=== PATIENT | male | born 1950 | race Caucasian/White ===

== ENCOUNTER 2023-04-20 17:46 | Inpatient (IN) | payer MEDICARE, SELFPAY ==
[2023-04-20] VITALS (27 sets, daily range): BP systolic 130–240; BP diastolic 74–136; PULSE 69–110; RESP 12–32; TEMP 36.3–36.9; O2SAT 83–100; BMI 33.7; BMI 34.4
--- NOTE | 2023-04-20 17:46 | ECG_ITS ---
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
--- NOTE | 2023-04-20 17:48 | ED_ITS ---
HPI - SOB/Dyspnea General Chief Complaint: Shortness of Breath/Dyspnea Stated Complaint: SHORTNESS OF BREATH Time Seen by Provider: 04/20/23 18:02 Source: patient and EMR Mode of arrival: ambulance History of Present Illness HPI Narrative: patient is a 72-year-old male with a history of stage IV gastric carcinoma who presents the emergency department by ambulance for respiratory distress. Patient's cancer center nurse contacted the emergency department for brief report prior to his arrival, she reported that the patient was recently admitted to [facility] from 04/14 to 04/18 for abdominal pain and after endoscopy was found to have gastrointestinal bleed secondary to gastric tumor and ulcer. He was taken off of his Xarelto and was discharged two days ago. He contacted the cancer center today in [place] stating that he was having difficulty breathing. Patient is groaning on arrival to the emergency Department and only answers some questions. He appears pale, EMS reports that he denied chest pain but he reports to me that he has had some chest pain. He has some swelling to the lower extremities, no fevers or vomiting. Palliative medicine consult at [facility] place the patient on fentanyl patch and oral Dilaudid for pain control. Patient is a DNR CCA by his living will, though he does not have any DNR CCA paperwork with him on arrival to the emergency department. Related Data Home Medications Medication Instructions Recorded Confirmed aluminum-mag hydroxide-simethicone 5 ml PO Q3H PRN indigestion 04/20/23 04/20/23 200 mg-200 mg-20 mg/5 mL oral susp (Antacid) atorvastatin 20 mg tablet 20 mg PO DAILY 04/20/23 04/20/23 diphenhydramine HCl 12.5 mg/5 mL 12.5 mg PO Q8H PRN allergy symptoms 04/20/23 04/20/23 oral liquid (Allergy (diphenhydramine)) fentanyl 12 mcg/hr transdermal 1 patch topical Q72H 04/20/23 04/20/23 patch fentanyl 25 mcg/hr transdermal 1 patch transdermal Q72H Pain 04/20/23 04/20/23 patch fluocinonide 0.05 % topical cream 1 applic topical DAILY 04/20/23 04/20/23 fluocinonide 0.05 % topical 1 applic topical DAILY 04/20/23 04/20/23 solution hydrocortisone 10 mg tablet 40 mg PO BID 04/20/23 04/20/23 hydrocortisone 2.5 % topical cream 1 applic [place] DAILY PRN itching 04/20/23 04/20/23 with perineal applicator (Anusol-HC) hydromorphone 2 mg tablet 4 mg PO Q4H PRN pain 04/20/23 04/20/23 ketoconazole 2 % shampoo 1 applic topical Q14D 04/20/23 04/20/23 lorazepam 0.5 mg tablet 0.5 mg PO TID PRN anxiety 04/20/23 04/20/23 losartan 100 mg tablet 100 mg PO DAILY 04/20/23 04/20/23 naloxone 4 mg/actuation nasal spray 4 mg intranasal DAILY PRN opioid 04/20/23 04/20/23 overdose omeprazole 20 mg capsule,delayed 20 mg PO DAILY 04/20/23 04/20/23 release ondansetron 4 mg disintegrating 8 mg PO Q8H 04/20/23 04/20/23 tablet polyethylene glycol 3350 17 17 g PO DAILY 04/20/23 04/20/23 gram/dose oral powder (ClearLax) rosuvastatin 40 mg tablet 40 mg PO DAILY 04/20/23 04/20/23 sennosides 8.6 mg tablet (Corrie-dario) 8.6 mg PO DAILY 04/20/23 04/20/23 sucralfate 1 gram tablet 1 g PO .AC and HS 04/20/23 04/20/23 terazosin 10 mg capsule 10 mg PO DAILY 04/20/23 04/20/23 triamcinolone acetonide 0.1 % 1 applic topical DAILY 04/20/23 04/20/23 topical cream venlafaxine 150 mg 150 mg PO DAILY 04/20/23 04/20/23 capsule,extended release 24 hr Allergies Allergy/AdvReac Type Severity Reaction Status Date / Time acetaminophen [From Percocet] Allergy Intermediate Verified 04/20/23 17:51 morphine Allergy Intermediate Verified 04/20/23 17:49 oxycodone [From Percocet] Allergy Intermediate Verified 04/20/23 17:51 prochlorperazine Allergy Intermediate Verified 04/20/23 17:51 [From Compazine] Review of Systems ROS Constitutional Denies: fever or chills Ears, nose, mouth, and throat Denies: neck pain Cardiovascular Reports: chest pain Respiratory Reports: shortness of breath and cough Gastrointestinal Reports: abdominal pain; Denies: nausea or vomiting Musculoskeletal Denies: back pain or neck pain Integumentary/Breast Denies: rash Neurological Denies: headache PFSH PFS Medical History (Updated 04/20/23 @ 21:44 by Calista Hernandez) Social History (Updated 04/20/23 @ 21:46 by Calista Hernandez) Within the past year, how often did you have a drink containing alcohol: never Score interpretation: A score less than 4 is consistent with normal alcohol consumption. 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 Known occupational exposures/hazards: No Highest level of school completed/degree received: Bachelor's degree Are you now , , , , never or living with a partner: never In a typical week, how many times do you talk on the telephone with family, friends, or neighbors: 3 or more times per week How often do you get together with friends or relatives: 3 or more times per week How often do you attend voodoo or anglican services: 1-3 times per year Little interest or pleasure in doing things: nearly every day Feeling down, depressed, or hopeless: nearly every day Exam Narrative Exam Narrative: Gen.: Awake, alert, anxious with moderate respiratory distress. Head: Normocephalic, atraumatic ENT: Moist mucous membranes Respiratory: No respiratory distress, Rales and wheezing bilaterally Cardio: Regular rate and rhythm Gastrointestinal: Abdomen is soft, obese, nontender to palpation with umbilical hernia noted Extremities: Moves extremities equally Psych: anxious Neuro: No focal neuro deficit Skin: Warm, dry, pale Constitutional Vital Signs - 24 hr 04/20/23 17:44 04/20/23 18:00 04/20/23 18:05 Temperature 98.4 F Pulse Rate 96 H Pulse Rate [Monitor] 99 H Respiratory Rate 30 H Blood Pressure Blood Pressure [Right Arm] 180/83 H Pulse Oximetry 93 L 99 99 Oxygen Delivery Method Nonrebreather BIPAP Fraction of Inspired Oxygen 50 04/20/23 17:46 04/20/23 17:46 04/20/23 18:00 Temperature Pulse Rate 91 H 96 H 99 H Pulse Rate [Monitor] Respiratory Rate 31 H 26 H 15 Blood Pressure 180/83 H 151/75 H Blood Pressure [Right Arm] Pulse Oximetry 98 92 L 98 Oxygen Delivery Method Fraction of Inspired Oxygen 04/20/23 18:00 04/20/23 18:15 04/20/23 18:30 Temperature Pulse Rate 97 H 96 H Pulse Rate [Monitor] Respiratory Rate 24 27 H Blood Pressure 151/75 H 147/96 H 130/74 H Blood Pressure [Right Arm] Pulse Oximetry 95 96 Oxygen Delivery Method Fraction of Inspired Oxygen 04/20/23 19:05 04/20/23 19:07 04/20/23 19:07 Temperature Pulse Rate 110 H 103 H 108 H Pulse Rate [Monitor] Respiratory Rate 25 H 26 H 32 H Blood Pressure 240/134 H Blood Pressure [Right Arm] Pulse Oximetry 100 100 100 Oxygen Delivery Method Fraction of Inspired Oxygen 04/20/23 19:10 04/20/23 19:15 04/20/23 19:30 Temperature Pulse Rate 104 H 99 H 99 H Pulse Rate [Monitor] Respiratory Rate 21 22 20 Blood Pressure 168/94 H 167/100 H 179/92 H Blood Pressure [Right Arm] Pulse Oximetry 99 98 83 L Oxygen Delivery Method Fraction of Inspired Oxygen 04/20/23 19:45 Temperature Pulse Rate 97 H Pulse Rate [Monitor] Respiratory Rate 24 Blood Pressure 141/92 H Blood Pressure [Right Arm] Pulse Oximetry 99 Oxygen Delivery Method Fraction of Inspired Oxygen Course Vital Signs Vital signs: Vital Signs Temperature 98.4 F 04/20/23 17:44 Pulse Rate 99 H 04/20/23 17:44 Respiratory Rate 30 H 04/20/23 17:44 Blood Pressure 180/83 H 04/20/23 17:44 Pulse Oximetry 93 L 04/20/23 17:44 Oxygen Delivery Method Nonrebreather 04/20/23 17:44 Temperature 97.4 F L 04/20/23 22:07 Pulse Rate 90 04/20/23 22:15 Respiratory Rate 22 04/20/23 22:07 Blood Pressure 151/82 H 04/20/23 22:07 Pulse Oximetry 95 04/20/23 22:15 Oxygen Delivery Method BIPAP 04/20/23 22:07 Fraction of Inspired Oxygen 04/20/23 22:01 MDM - SOB/Dyspnea MDM Narrative Medical decision making narrative: on arrival to the emergency department, patient was in moderate respiratory distress and treated with BiPAP. He tolerated this well and had significant improvement of his respiratory status. He was given additional pain medication and nausea medication. Solu-Medrol was given by EMS prior to arrival and he received breathing treatments on arrival that was started by EMS. Lab studies show normal troponin, normal BNP. CT angiogram of the chest shows no evidence of PE but there is bilateral patchy pneumonia. Patient will be treated for hospital-acquired pneumonia with Zosyn and vancomycin. We will admit to ICU at this facility for further evaluation and treatment. patient admitted to ICU on BiPAP, critical care time thirty-five minutes Patient reevaluated by attending physician prior to admission Medical Records Attestation: I reviewed the patient's medical records. Lab Data Attestation: I reviewed the patient's lab results. Labs: Lab Results 04/20/23 04/20/23 Range/Units 17:46 18:05 WBC 13.4 H (4.0-11.0) 10^3/uL RBC 3.04 L (4.70-6.10) 10^6/uL Hgb 8.3 L (14.0-18.0) g/dL Hct 26.7 L (42.0-54.0) % MCV 87.8 (80.0-94.0) fL MCH 27.3 (25.9-34.0) pg MCHC 31.1 (29.9-35.2) g/dL RDW 14.7 (11.0-15.0) % Plt Count 442 (150-450) 10^3/uL MPV 9.3 L (9.5-13.5) fL Neut % (Auto) 93.6 H (43.0-75.0) % Lymph % (Auto) 2.8 L (20.5-60.0) % Stephens % (Auto) 3.1 (1.7-12.0) % Eos % (Auto) 0.1 L (0.9-7.0) % Baso % (Auto) 0.1 L (0.2-2.0) % Neut # (Auto) 12.6 H (1.4-6.5) 10^3/uL Lymph # (Auto) 0.4 L (1.2-3.8) 10^3/uL Stephens # (Auto) 0.4 (0.3-0.8) 10^3/uL Eos # (Auto) 0.0 (0.0-0.7) 10^3/uL Baso # (Auto) 0.0 (0.0-0.1) 10^3/uL Abs Immat Gran (auto) 0.04 H (0.00-0.03) 10^3/uL Imm/Tot Granulo (auto) 0.3 (0.0-0.5) % PT 11.6 (9.0-11.6) sec INR 1.10 APTT 28.3 (22.3-36.2) sec Sodium 140 (136-145) mmol/L Potassium 4.0 (3.5-5.1) mmol/L Chloride 105 (98-107) mmol/L Carbon Dioxide 29.9 (21.0-32.0) mmol/L Anion Gap 9.1 BUN 19.0 H (7.0-18.0) mg/dL Creatinine 0.98 (0.70-1.30) mg/dL Est GFR ( Amer) >60 (>=60) Est GFR (Non-Af Amer) >60 (>=60) BUN/Creatinine Ratio 19.4 Glucose 142 H (74-106) mg/dL Calcium 7.9 L (8.5-10.1) mg/dL Total Bilirubin 0.2 (0.2-1.0) mg/dL AST 32 (15-37) U/L ALT 28 (16-63) U/L Alkaline Phosphatase 67 (46-116) U/L Troponin I High Sens 9.2 (4.0-76.1) pg/mL NT-Pro-B Natriuret Pep 192.0 (<=900.0) pg/mL Total Protein 5.7 L (6.4-8.2) g/dL Albumin 2.3 L (3.4-5.0) g/dL Globulin 3.4 g/dL Albumin/Globulin Ratio 0.7 SARS-CoV-2 (PCR) Negative (NEGATIVE) Imaging Data CT scan - chest: Attestation: I have reviewed the pertinent imaging results. Radiologist's impression: Procedure: CT angio chest EXAM: CT angio chest TECHNIQUE: Axial CT images were obtained of the chest following intravenous contrast administration. Sagittal and coronal reformatted images were also obtained. Dose reduction techniques were achieved by using automated exposure control and/or adjustment of mA and/or kV according to patient size and/or use of iterative reconstruction technique. 3-D volume rendering created. HISTORY: respiratory distress COMPARISON: None FINDINGS: Neck and Axilla: No lower neck or axillary lymphadenopathy. Mediastinum and Arielle: No hilar or mediastinal lymphadenopathy. Esophagus is unremarkable. Heart and Major Vessels: The heart appears unremarkable for size without pericardial effusion. The aorta and central pulmonary arteries are unremarkable for size.No pulmonary arterial filling defect to suggest acute pulmonary embolism. Lung Waller: Diffuse bilateral central airspace opacities a few benign calcified granulomas are seen. Evaluation of lung waller is somewhat limited by breathing motion artifact. Mild left base dependent and compressive atelectasis. Pleural Spaces: Small left subpleural effusion. Upper Abdomen: Small amount of ascites in the upper abdomen. Nodular opacities throughout the anterior omentum. Upper abdominal metastatic lymphadenopathy.. Chest Wall: No acute abnormality. IMPRESSION: No evidence for acute pulmonary embolism. Bilateral patchy airspace opacities, most compatible with an infectious pneumonia. Nodular appearance of the upper abdominal omentum suspicious for metastatic disease. Upper abdominal metastatic adenopathy. Electronically authenticated by: JOVANI MORALES Date: 04/20/2023 19:49 ECG Data Attestation: I personally reviewed and interpreted this ECG as follows: (sinus tachycardia at a rate of 100, sinus arrhythmia noted with no acute ST elevation or ectopy. EKG reviewed by attending physician) ECG interpretation date: 04/20/23 ECG interpretation time: 17:53 Critical Care Time Critical Care Time Critical Care Time: Yes Total Critical Care Time: 35 Attestation: critical care time thirty-five minutes Discharge Plan Discharge Chief Complaint: Shortness of Breath/Dyspnea Clinical Impression: Anemia, Acute respiratory distress, Bilateral pneumonia Patient Disposition: Admitted As Inpatient Time of Disposition Decision: 20:29 Condition: Fair
--- NOTE | 2023-04-20 18:06 | PC.NURSE ---
Pt 62% at home when EMS arrived. Has been feeling SOB since noon and getting worse. H/o stage 4 stomach cancer and has been getting chemo infusions at [facility]. Pt given nebulizers in squad and placed on NRB. Pt also received versed by EMS for agitation/restlessness. RT at bedside upon arrival. placed on BIPAP.
[2023-04-20 18:26] LABS: Basophils Percent Auto 0.1 % (0.2-2.0); Eosinophils Percent Auto 0.1 % (0.9-7.0); Hematocrit 26.7 % (42.0-54.0); Hemoglobin 8.3 g/dL (14.0-18.0); Immature Granulocytes Abs Auto 0.04 10^3/uL (0.00-0.03); Immature Granulocytes Pct Auto 0.3 % (0.0-0.5); Lymphocytes Absolute Auto 0.4 10^3/uL (1.2-3.8); Lymphocytes Percent Auto 2.8 % (20.5-60.0); Mean Corpuscular HGB Conc 31.1 g/dL (29.9-35.2); Mean Corpuscular Hemoglobin 27.3 pg (25.9-34.0); Mean Corpuscular Volume 87.8 fL (80.0-94.0); Mean Platelet Volume 9.3 fL (9.5-13.5); Monocytes Absolute Auto 0.4 10^3/uL (0.3-0.8); Monocytes Percent Auto 3.1 % (1.7-12.0); Neutrophils Absolute Auto 12.6 10^3/uL (1.4-6.5); Neutrophils Percent Auto 93.6 % (43.0-75.0); Platelet Count 442 10^3/uL (150-450); Red Blood Count 3.04 10^6/uL (4.70-6.10); Red Cell Distribution Width 14.7 % (11.0-15.0); White Blood Count 13.4 10^3/uL (4.0-11.0)
[2023-04-20 18:38] LABS: Partial Thromboplastin Time 28.3 sec (22.3-36.2); Prothrombin Time 11.6 sec (9.0-11.6)
[2023-04-20 18:43] LABS: Alanine Aminotransferase 28 U/L (16-63); Albumin Globulin Ratio 0.7; Albumin Level 2.3 g/dL (3.4-5.0); Alkaline Phosphatase 67 U/L (46-116); Anion Gap 9.1; Aspartate Amino Transferase 32 U/L (15-37); BUN Creatinine Ratio 19.4; Bilirubin Total 0.2 mg/dL (0.2-1.0); Calcium 7.9 mg/dL (8.5-10.1); Carbon Dioxide 29.9 mmol/L (21.0-32.0); Chloride 105 mmol/L (98-107); Estimated GFR (African America >60 (>=60); Estimated GFR (Non-African Ame >60 (>=60); Globulin 3.4 g/dL; Glucose 142 mg/dL (74-106); Sodium 140 mmol/L (136-145); Total Protein 5.7 g/dL (6.4-8.2); Troponin I High Sensitivity 9.2 pg/mL (4.0-76.1)
[2023-04-20 18:56] LABS: SARS-CoV-2 Ag NEGATIVE (NEGATIVE)
[2023-04-20] MEDS: ONDANSETRON PF 4 MG/2 ML VIAL IV (19:23)
[2023-04-20] MEDS: HYDROMORPHONE HCL 2 MG/ML VIAL 1 MG IV (19:24)
[2023-04-20] MEDS: VANCOMYCIN HCL 1,000 MG in 0.9 % SODIUM CHLORIDE 250 ML 250 MG IV (20:54)
[2023-04-20] MEDS: PIPERACILLIN SODIUM/TAZOBACTAM 4.5 GM in 0.9 % SODIUM CHLORIDE 50 ML IV (20:54)
--- NOTE | 2023-04-20 23:27 | W.PM.TELEPN ---
Progress Note: Subjective Subjective Interval history: SOB HPI: patient is a 72-year-old male who presents to the complaints. The patient is a history of stage IV gastric carcinoma who presents the emergency department by ambulance for respiratory distress. Patient's cancer center nurse contacted the emergency department for brief report prior to his arrival, she reported that the patient was recently admitted to [facility] from 04/14 to 04/18 for abdominal pain and after endoscopy was found to have gastrointestinal bleed secondary to gastric tumor and ulcer. He was taken off of his Xarelto and was discharged two days ago. He contacted the cancer center today in [place] stating that he was having difficulty breathing. Patient is groaning on arrival to the emergency Department and only answers some questions. He appears pale, EMS reports that he denied chest pain but he reports to me that he has had some chest pain. He has some swelling to the lower extremities, no fevers or vomiting. Palliative medicine consult at [facility] place the patient on fentanyl patch and oral Dilaudid for pain control. Patient is a DNR CCA by his living will, though he does not have any DNR CCA paperwork with him on arrival to the emergency department. Evaluation in the emergency room significant for. Patient has been in respiratory distress on presentation with tach. Initiated. Exam Narrative Exam Narrative: Physical Exam: Respiratory distress, Head - atraumatic, eyes - pupils equal, round, reactive to light, extra ocular movement intact, MMM Neck - supple, thyroid not enlarged, LN not palpated Lungs -coarse breath sounds bilaterally, decreased at bases, bibasilar rhonchi CVS - heart sounds S1, S2, no additional murmurs gallop, regular rate and rhythm Gastrointestinal?abdomen is soft, non-tender, non-distended, no organomegaly, positive bowel sounds Extremities no clubbing, cyanosis or edema Neurological?cranial nerve II?XII grossly intact, no meningeal signs, no cerebellar signs, no sensory deficit Musculoskeletal - joints, no effusions, ROM preserved Dermatological - the skin dry, warm, no rashes Psychiatric?patient is AAO X3, patient has normal affect Constitutional Vital Signs - 24 hr 04/20/23 17:44 04/20/23 18:00 04/20/23 18:05 Temperature 98.4 F Pulse Rate 96 H Pulse Rate [Monitor] 99 H Respiratory Rate 30 H Blood Pressure Blood Pressure [Right Arm] 180/83 H Pulse Oximetry 93 L 99 99 Oxygen Delivery Method Nonrebreather BIPAP Fraction of Inspired Oxygen 50 04/20/23 17:46 04/20/23 17:46 04/20/23 18:00 Temperature Pulse Rate 91 H 96 H 99 H Pulse Rate [Monitor] Respiratory Rate 31 H 26 H 15 Blood Pressure 180/83 H 151/75 H Blood Pressure [Right Arm] Pulse Oximetry 98 92 L 98 Oxygen Delivery Method Fraction of Inspired Oxygen 04/20/23 18:00 04/20/23 18:15 04/20/23 18:30 Temperature Pulse Rate 97 H 96 H Pulse Rate [Monitor] Respiratory Rate 24 27 H Blood Pressure 151/75 H 147/96 H 130/74 H Blood Pressure [Right Arm] Pulse Oximetry 95 96 Oxygen Delivery Method Fraction of Inspired Oxygen 04/20/23 19:05 04/20/23 19:07 04/20/23 19:07 Temperature Pulse Rate 110 H 103 H 108 H Pulse Rate [Monitor] Respiratory Rate 25 H 26 H 32 H Blood Pressure 240/134 H Blood Pressure [Right Arm] Pulse Oximetry 100 100 100 Oxygen Delivery Method Fraction of Inspired Oxygen 04/20/23 19:10 04/20/23 19:15 04/20/23 19:30 Temperature Pulse Rate 104 H 99 H 99 H Pulse Rate [Monitor] Respiratory Rate 21 22 20 Blood Pressure 168/94 H 167/100 H 179/92 H Blood Pressure [Right Arm] Pulse Oximetry 99 98 83 L Oxygen Delivery Method Fraction of Inspired Oxygen 04/20/23 19:45 04/20/23 21:27 04/20/23 21:34 Temperature 97.4 F L Pulse Rate 97 H 89 Pulse Rate [Monitor] Respiratory Rate 24 16 Blood Pressure 141/92 H Blood Pressure [Right Arm] 151/82 H Pulse Oximetry 99 100 95 Oxygen Delivery Method Nonrebreather BIPAP Fraction of Inspired Oxygen 04/20/23 22:01 04/20/23 22:07 04/20/23 22:15 Temperature 97.4 F L Pulse Rate 86 90 Pulse Rate [Monitor] Respiratory Rate 22 Blood Pressure Blood Pressure [Right Arm] 151/82 H Pulse Oximetry 95 96 95 Oxygen Delivery Method BIPAP BIPAP Fraction of Inspired Oxygen 04/20/23 21:22 04/20/23 21:22 04/20/23 21:22 Temperature Pulse Rate Pulse Rate [Monitor] Respiratory Rate Blood Pressure Blood Pressure [Right Arm] Pulse Oximetry 97 99 99 Oxygen Delivery Method BIPAP BIPAP Fraction of Inspired Oxygen 40 40 40 Progress Note: Objective Labs Labs: Short CBC 04/20/23 Range/Units 17:46 WBC 13.4 H (4.0-11.0) 10^3/uL Hgb 8.3 L (14.0-18.0) g/dL Hct 26.7 L (42.0-54.0) % Plt Count 442 (150-450) 10^3/uL BMP 04/20/23 17:46 Sodium 140 Potassium 4.0 Chloride 105 Carbon Dioxide 29.9 BUN 19.0 H Creatinine 0.98 Glucose 142 H Calcium 7.9 L Liver Function 04/20/23 Range/Units 17:46 Total Bilirubin 0.2 (0.2-1.0) mg/dL AST 32 (15-37) U/L ALT 28 (16-63) U/L Alkaline Phosphatase 67 (46-116) U/L Albumin 2.3 L (3.4-5.0) g/dL Progress Note: A&P Assessment and Plan (1) Acute respiratory distress: Assessment and Plan: This is deemed to patient. Continue treatment with BiPAP. Continue oxygen supplementation. Continue empiric cardiovascular antibiotics. Follow-up results of the cultures. (2) Bilateral pneumonia: Assessment and Plan: As above (3) Anemia: Assessment and Plan: Patient has a history of stomach ulcer and stomach cancer. Monitor CBC. Transfuse as needed. (4) Stomach ulcer: Assessment and Plan: Continue with PPIs (5) Pain: Assessment and Plan: Patient is almost pain management regimen from home. We will continue it (6) Hypertension: Assessment and Plan: Verify and resume home medications (7) High cholesterol: Assessment and Plan: Verify and resume home medications (8) Gastric cancer: (9) Anxiety: Assessment and Plan: the patient and the family hoping that when his respiratory status improves he will be able to visit with is Oncologist to discuss further Rx options (10) Anemia: Assessment and Plan: as above Telemedicine Attestation Telemedicine Attestation I conducted this encounter from [[place]] via secure live, [id number] video conference with the patient, located at [facility] with [PNA]. Prior to the interview, the risks and benefits of telemedicine were discussed with the patient and verbal consent was obtained. As the provider for the telehealth service, I attest that I introduced myself to the patient, provided my credentials, disclosed by location and determined that based on a review of the patient's chart and discussion with members of the patient's treatment team, telemedicine via real-time, 2 way, and interactive audio and video platform is an appropriate and effective means of providing the service. ?The patient and I mutually agree this visit is appropriate for telemedicine. ?The virtual encounter was taken place from? [place], [place]. ?The encounter took approximately 35 minutes. ?The nurse was present during the entire time and I was able to move the stethoscope in appropriate directions. ?The patient was evaluated at the Hospital ? Portions of this note may be dictated using myWebRoom voice recognition software. Variances in spelling and vocabulary are possible and unintentional. Not all errors may be caught and/or corrected. Please notify the author if any discrepancies are noted and/or if the meaning of any statement is unclear.? ? Patient verbally consented for treatment via video visit with patient currently located at [facility] and provider located in [facility]
[2023-04-21] VITALS (27 sets, daily range): BP systolic 129–151; BP diastolic 53–82; PULSE 57–96; RESP 16–29; TEMP 36.3–37; O2SAT 95–100; BMI 34.4
[2023-04-21] MEDS: 0.9 % SODIUM CHLORIDE 1,000 ML 100 ML IV ×3 (03:36→21:10)
[2023-04-21] MEDS: TERAZOSIN HCL 5 MG CAPSULE 10 MG PO (03:36)
[2023-04-21] MEDS: VENLAFAXINE HCL ER 150 MG CAPSULE PO ×2 (03:38→21:17)
[2023-04-21] MEDS: PIPERACILLIN SODIUM/TAZOBACTAM 3.375 GM in 0.9 % SODIUM CHLORIDE 50 ML IV ×3 (04:14→21:11)
[2023-04-21 05:08] LABS: Hemoglobin 8.2 g/dL (14.0-18.0); Mean Corpuscular HGB Conc 30.4 g/dL (29.9-35.2); Mean Corpuscular Hemoglobin 27.3 pg (25.9-34.0); Mean Platelet Volume 9.7 fL (9.5-13.5); Platelet Count 373 10^3/uL (150-450); Red Cell Distribution Width 14.8 % (11.0-15.0); White Blood Count 21.6 10^3/uL (4.0-11.0)
[2023-04-21 05:28] LABS: Anion Gap 11.3; Calcium 8.4 mg/dL (8.5-10.1); Carbon Dioxide 28.2 mmol/L (21.0-32.0); Chloride 103 mmol/L (98-107); Estimated GFR (African America >60 (>=60); Estimated GFR (Non-African Ame 57 (>=60); Glucose 140 mg/dL (74-106); Potassium 4.5 mmol/L (3.5-5.1); Sodium 138 mmol/L (136-145)
[2023-04-21] MEDS: ONDANSETRON PF 4 MG/2 ML VIAL IV ×3 (06:08→19:36)
[2023-04-21] MEDS: HYDROMORPHONE HCL 0.5 MG/0.5 ML SYRINGE IV ×3 (06:09→19:35)
[2023-04-21 06:28] LABS: Band Neutrophils Absolute 1.1 10^3/uL (0.0-0.3); Hypochromasia 2+; Lymphocytes Absolute Manual 0.64 10^3/uL (1.20-3.80); Monocytes Absolute Manual 0.43 10^3/uL (0.30-0.80); Segmented Neut Absolute Manual 19.44 10^3/uL (1.4-6.5)
--- NOTE | 2023-04-21 07:51 | RESP.RT ---
O2 titrated from 3 LPM to 2 LPM
[2023-04-21] MEDS: POLYETHYLENE GLYCOL 3350 17 GM POWDER PACKET PO (08:52)
[2023-04-21] MEDS: SUCRALFATE 1 GM TABLET PO ×4 (08:52→21:07)
[2023-04-21] MEDS: LOSARTAN POTASSIUM 50 MG TABLET 100 MG PO (08:52)
[2023-04-21] MEDS: LORAZEPAM 0.5 MG TABLET PO (08:53)
[2023-04-21] MEDS: OMEPRAZOLE 20 MG CAPSULE.DR PO (08:53)
[2023-04-21] MEDS: SENNOSIDES 8.6 MG TABLET PO (08:53)
[2023-04-21] MEDS: HYDROCORTISONE 20 MG TABLET 40 MG PO ×2 (09:22→21:07)
[2023-04-21] MEDS: VANCOMYCIN HCL 1,750 MG in 0.9 % SODIUM CHLORIDE 500 ML 250 MG IV (09:22)
[2023-04-21] MEDS: TRIAMCINOLONE ACETONIDE 0.1% CREAM 15 GM TUBE 1 APPLIC TOPICAL (09:23)
--- NOTE | 2023-04-21 11:59 | CM.NOTE ---
Rounds made with Dr. Patterson, no discharge today. Continue to treat for pneumonia. Dr. Patterson will reach out to pt's oncologist for any further recommendations.
[2023-04-21] MEDS: NON-FORMULARY 1 EACH (Rosuvastatin 40 mg tablet) 40 EACH PO (12:19)
--- NOTE | 2023-04-21 13:41 | SWNOTE1 ---
SW met with pt to discuss dc needs. Pt lives at home by himself. He does have a caregiver that comes in to help him and he stated there are many groups online that is he a part of. Pt also voices other friends in [place] who help as needed. Pt does use a walker or cane at home. Pt went to [facility] in February and he has declined since then. Pt does not wear home oxygen, but is on 02 at hospital currently. Pt denies having any needs or concerns about discharge at this time. SW to follow as needed.
[2023-04-21] MEDS: ONDANSETRON 4 MG RAPDIS TABLET 8 MG PO ×2 (14:00→21:08)
--- NOTE | 2023-04-21 15:14 | PC.NURSE ---
placed in room
[2023-04-21] MEDS: HEPARIN SODIUM (PORCINE) PF LOCK FLUSH 500 UNIT/5 ML SYRINGE IV (21:08)
[2023-04-21] MEDS: 0.9 % SODIUM CHLORIDE 10 ML SYRINGE - SALINE FLUSH IV (21:20)
[2023-04-22] VITALS (22 sets, daily range): BP systolic 151–196; BP diastolic 72–85; PULSE 55–67; RESP 18–22; TEMP 36.1–36.9; O2SAT 94–98
[2023-04-22] MEDS: ONDANSETRON PF 4 MG/2 ML VIAL IV ×4 (00:27→17:45)
[2023-04-22] MEDS: LORAZEPAM 0.5 MG TABLET PO ×3 (00:28→21:25)
[2023-04-22] MEDS: HYDROMORPHONE HCL 0.5 MG/0.5 ML SYRINGE IV ×3 (00:28→09:04)
[2023-04-22] MEDS: 0.9 % SODIUM CHLORIDE 1,000 ML 100 ML IV (01:37)
[2023-04-22] MEDS: PIPERACILLIN SODIUM/TAZOBACTAM 3.375 GM in 0.9 % SODIUM CHLORIDE 50 ML IV ×3 (05:04→21:27)
[2023-04-22] MEDS: ONDANSETRON 4 MG RAPDIS TABLET 8 MG PO ×2 (05:05→21:25)
[2023-04-22 05:19] LABS: Basophils Percent Auto 0.1 % (0.2-2.0); Immature Granulocytes Abs Auto 0.05 10^3/uL (0.00-0.03); Immature Granulocytes Pct Auto 0.4 % (0.0-0.5); Lymphocytes Absolute Auto 0.3 10^3/uL (1.2-3.8); Lymphocytes Percent Auto 2.4 % (20.5-60.0); Mean Corpuscular HGB Conc 30.3 g/dL (29.9-35.2); Mean Corpuscular Hemoglobin 26.7 pg (25.9-34.0); Mean Corpuscular Volume 88.4 fL (80.0-94.0); Mean Platelet Volume 9.4 fL (9.5-13.5); Monocytes Absolute Auto 0.6 10^3/uL (0.3-0.8); Monocytes Percent Auto 4.5 % (1.7-12.0); Neutrophils Absolute Auto 11.6 10^3/uL (1.4-6.5); Neutrophils Percent Auto 92.6 % (43.0-75.0); Platelet Count 314 10^3/uL (150-450); Red Blood Count 2.58 10^6/uL (4.70-6.10); Red Cell Distribution Width 14.8 % (11.0-15.0); White Blood Count 12.6 10^3/uL (4.0-11.0)
[2023-04-22 05:33] LABS: Hematocrit 22.8 % (42.0-54.0); Hemoglobin 6.9 g/dL (14.0-18.0)
[2023-04-22 05:45] LABS: Alanine Aminotransferase 26 U/L (16-63); Albumin Globulin Ratio 0.6; Albumin Level 2.1 g/dL (3.4-5.0); Alkaline Phosphatase 52 U/L (46-116); Anion Gap 8.5; Aspartate Amino Transferase 36 U/L (15-37); Bilirubin Total 0.2 mg/dL (0.2-1.0); Carbon Dioxide 30.6 mmol/L (21.0-32.0); Chloride 103 mmol/L (98-107); Estimated GFR (African America >60 (>=60); Estimated GFR (Non-African Ame >60 (>=60); Globulin 3.3 g/dL; Glucose 103 mg/dL (74-106); Potassium 4.1 mmol/L (3.5-5.1); Sodium 138 mmol/L (136-145); Total Protein 5.4 g/dL (6.4-8.2)
[2023-04-22] MEDS: HYDROCORTISONE 20 MG TABLET 40 MG PO ×2 (08:37→21:25)
[2023-04-22] MEDS: MAALOX (MAG HYDROX/ALUMINUM HYD/SIMETH) 30 ML ORAL.SUSP 5 ML PO (08:37)
[2023-04-22] MEDS: SENNOSIDES 8.6 MG TABLET PO (08:38)
[2023-04-22] MEDS: LOSARTAN POTASSIUM 50 MG TABLET 100 MG PO (08:38)
[2023-04-22] MEDS: OMEPRAZOLE 20 MG CAPSULE.DR PO (08:38)
[2023-04-22] MEDS: POLYETHYLENE GLYCOL 3350 17 GM POWDER PACKET PO (08:38)
[2023-04-22] MEDS: SUCRALFATE 1 GM TABLET PO ×4 (08:38→21:25)
[2023-04-22] MEDS: 0.9 % SODIUM CHLORIDE 10 ML SYRINGE - SALINE FLUSH IV ×2 (08:39→21:29)
[2023-04-22] MEDS: VANCOMYCIN HCL 1,750 MG in 0.9 % SODIUM CHLORIDE 500 ML 250 MG IV (08:51)
[2023-04-22] MEDS: NON-FORMULARY 1 EACH (Rosuvastatin 40 mg tablet) 40 EACH PO (08:56)
[2023-04-22] MEDS: TRIAMCINOLONE ACETONIDE 0.1% CREAM 15 GM TUBE 1 APPLIC TOPICAL (08:57)
--- NOTE | 2023-04-22 12:12 | CM.NOTE ---
Rounds made with Dr. Patterson, no discharge today. Pt continues with uncontrolled pain and SOB.
--- NOTE | 2023-04-22 13:13 | PT.DAILY ---
Physical Therapy Daily Note PT Daily Note/Assess Start: 04/22/23 13:10 Freq: Status: Active Protocol: Document 04/22/23 11:45 [place] (Rec: 04/22/23 13:13 [place] [id number]) Physical Therapy Daily Note/Assessment Time In/Time Out Time In 11:45 Time Out 11:50 Pain In Pain N/A Pain Out Pain N/A Subjective Subjective Pt sitting in BS chair. Very nauseous. Pt groaning in pain and from feeling sick. Family wishes to get pt back to bed as he cannot tolerating sitting up anymore. (OT got pt up about 20 min prior) Therapeutic Activity Time Therapeutic Activity Minutes (minutes) 3 Therapeutic Activity Units 0 Therapeutic Activity Treatment Bed Mobility Ability Minimum Assist Chair Transfer Ability Minimum Assist Therapeutic Activity Comments Sit>stand from BS chair Dylan and amb 4' with RW to bed. Pt requires Dylan to advance LEs into bed. Remains sidelying. Pillows placed behind back and between legs. Pt talks to therapist but will not keep eyes open. Will follow up if feeling better this afternoon for more PT. Total Physical Therapy Time Total Therapy Minutes 3 Total Physical Therapy Units 0 Summary Daily Note Summary Very nauseous - poor tolerance to activity. No charge visit. Will follow up this afternoon .
[2023-04-22] MEDS: PANTOPRAZOLE SODIUM 40 MG VIAL IV (13:30)
[2023-04-22] MEDS: HYDROMORPHONE HCL 2 MG TABLET 4 MG PO ×3 (13:39→21:30)
--- NOTE | 2023-04-22 13:45 | DIETREC ---
Nutrition Recommendations: 1. Add Ensure HP ([place] flavor only) once daily, if in stock. Reviewed with RDSerina
--- NOTE | 2023-04-22 14:15 | CM.NOTE ---
Important Message From Medicare discussed with pt, pt verbalizes understanding and signs paper. Original given to pt and copy placed on pt chart.
--- NOTE | 2023-04-22 14:55 | CT_ITS ---
The [address] [address] Patient Name: TOMMY PACKER MRN: [id number] date: 1950 Sex: M Assigned Patient Location: [place] Current Patient Location: [place] Accession/Order Number: [id number] Exam Date: 04/22/2023 14:40 Report Date: 04/22/2023 15:21 At the request of: SHAIKH HUMBLE Procedure: CT abdomen pelvis w con EXAM: CT abdomen pelvis w con HISTORY: Abdominal pain COMPARISON: 05/05/2018 TECHNIQUE: Axial CT images were obtained of the abdomen and pelvis with intravenous contrast. Multiplanar reconstructions were performed. ABDOMEN/PELVIS FINDINGS: Lower Chest: Airspace infiltrates present in the lung bases. There is a small left pleural effusion. Liver: Normal enhancement and contour. Biliary/Gallbladder: Unremarkable. Pancreas: Unremarkable. Spleen: Unremarkable. Adrenal Glands: Unremarkable. Kidneys: Unremarkable. Gastrointestinal/Peritoneum: The gastric wall appears thickened in the region of the body of the stomach measuring approximately 3 cm in diameter. There is extensive carcinomatosis of the peritoneum in the upper abdomen with bulky areas of conglomerate soft tissue demonstrating an infiltrative, irregular appearance along the lesser curvature of the stomach and superior to the pancreatic tail. Carcinomatosis along the abdominal venous structures is also present in the upper abdomen. There are no dilated loops of bowel. Mild colonic diverticulosis is present. The appendix is unremarkable. There is a moderate volume of ascites. Vascular: Extensive atherosclerotic calcifications are present. Lymph Nodes: Enlarged bulky lymph nodes are present in the upper central mesentery and retroperitoneum. For example a node measuring 7.8 cm is superior to the pancreatic head. A hepatic hilar node measures 2.1 x 1.5 cm. A enlarged mesenteric lymph node measures 1.9 cm. A retroperitoneal preaortic lymph node measures 1.7 cm. Pelvic Organs: Unremarkable. Bladder: Unremarkable. Bones: No acute osseous abnormality. Mild to moderate degenerative changes are present in the visualized spine, greatest at L3-L4 and L4-L5. Soft tissues: Unremarkable. IMPRESSION: 1. Gastric wall thickening present in the body the stomach, likely due to the known gastric malignancy. 2. Extensive peritoneal carcinomatosis in the upper abdomen with infiltrative soft tissue seen throughout the upper abdominal mesentery. There are bulky metastatic soft tissue conglomerates adjacent to the lesser curvature of the stomach and superior to the pancreatic tail. Correlation with pancreatic enzymes is recommended to exclude the possibility of acute pancreatitis. 3. Extensive lymphadenopathy in the upper central mesentery and retroperitoneum consistent with metastatic disease. 4. Moderate volume of ascites. 5. Airspace opacities present in the lung bases, possibly due to pulmonary edema or pneumonia. 6. Small left pleural effusion. 7. Chronic findings in the body the report. Electronically authenticated by: GILMER MALDONADO Date: 04/22/2023 15:21
--- NOTE | 2023-04-22 14:58 | PT.DAILY ---
Physical Therapy Daily Note PT Daily Note/Assess Start: 04/22/23 13:10 Freq: Status: Active Protocol: Document 04/22/23 14:57 SHELL (Rec: 04/22/23 14:58 SHELL [id number]) Visit Not Completed Visit Not Completed Visit Not Completed Due to: Pt out of room Other Reason Visit Not Completed Out of room getting testing. Will follow up tomorrow. Physical Therapy Daily Note/Assessment Time In/Time Out Time In 14:55 Time Out 14:55 GG. Functional Abilities and Goals-Complete for Swing Bed Patients Only [id number]. Self-Care [id number]. Mobility
--- NOTE | 2023-04-22 15:28 | SWNOTE1 ---
SHANA spoke with pt in room about home health services and he would like us to talk with Alessandra. SHANA spoke with Alessandra and pt's horse and wagon driver (who is his POA?) about home health services. They do feel this would be beneficial, but would also like information on private caregivers as well to assist in the home. SHANA did give [facility] home health list from medicare.gov that has star ratings on it. They did review and his horse and wagon driver decided on [facility] and pt also gave the ok as well. Referral sent to [facility].
--- NOTE | 2023-04-22 15:57 | PM.HP ---
H&P: HPI History of Present Illness Chief complaint: Shortness of breath/Respiratory distress Narrative: Delayed note for my encounter on 04/21/23 72 y o male with stage 4 gastric cancer, with recent hospital discharge from [facility] for UGI bleeding from bleeding gastric neoplasm was brought in for worsening SOB when he presented for outpatient oncology appt. Patient was noted to have acute resp failure with hypoxia (Pulse Ox in 80s on arrival) sec to b/l Pneumonia and was admitted to ICU for it. Patient was started on broad spectrum abx - IV vancomycin and Zosyn due to recent hospital admission and immuno compromised status along with IVF. When seen in morning, he reported feeling better from resp status but was complaining of poorly controlled abdominal pain for which he is on fentanyl patch, oral dilaudid and hydrocrotisone. Denies nausea, vomiting or change in bowel habits. He does not have any chronic lung disease and does not require O2 Review of Systems ROS Status of ROS 10 or more systems reviewed and unremarkable except as noted in history and below [facility] Medical History Social History Within the past year, how often did you have a drink containing alcohol: never Score interpretation: A score less than 4 is consistent with normal alcohol consumption. 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 Known occupational exposures/hazards: No Highest level of school completed/degree received: Bachelor's degree Are you now , , , , never or living with a partner: never In a typical week, how many times do you talk on the telephone with family, friends, or neighbors: 3 or more times per week How often do you get together with friends or relatives: 3 or more times per week How often do you attend jew or mosque services: 1-3 times per year Little interest or pleasure in doing things: nearly every day Feeling down, depressed, or hopeless: nearly every day Meds Home Medications and Allergies Home Medications Medication Instructions Recorded Confirmed Type aluminum-mag hydroxide-simethicone 5 ml PO Q3H PRN indigestion 04/20/23 04/20/23 History 200 mg-200 mg-20 mg/5 mL oral susp (Antacid) atorvastatin 20 mg tablet 20 mg PO DAILY 04/20/23 04/20/23 History diphenhydramine HCl 12.5 mg/5 mL 12.5 mg PO Q8H PRN allergy symptoms 04/20/23 04/20/23 History oral liquid (Allergy (diphenhydramine)) fentanyl 12 mcg/hr transdermal 1 patch topical Q72H 04/20/23 04/20/23 History patch fentanyl 25 mcg/hr transdermal 1 patch transdermal Q72H Pain 04/20/23 04/20/23 History patch fluocinonide 0.05 % topical cream 1 applic topical DAILY 04/20/23 04/20/23 History fluocinonide 0.05 % topical 1 applic topical DAILY 04/20/23 04/20/23 History solution hydrocortisone 10 mg tablet 40 mg PO BID 04/20/23 04/20/23 History hydrocortisone 2.5 % topical cream 1 applic [place] DAILY PRN itching 04/20/23 04/20/23 History with perineal applicator (Anusol-HC) hydromorphone 2 mg tablet 4 mg PO Q4H PRN pain 04/20/23 04/20/23 History ketoconazole 2 % shampoo 1 applic topical Q14D 04/20/23 04/20/23 History lorazepam 0.5 mg tablet 0.5 mg PO TID PRN anxiety 04/20/23 04/20/23 History losartan 100 mg tablet 100 mg PO DAILY 04/20/23 04/20/23 History naloxone 4 mg/actuation nasal spray 4 mg intranasal DAILY PRN opioid 04/20/23 04/20/23 History overdose omeprazole 20 mg capsule,delayed 20 mg PO DAILY 04/20/23 04/20/23 History release ondansetron 4 mg disintegrating 8 mg PO Q8H 04/20/23 04/20/23 History tablet polyethylene glycol 3350 17 17 g PO DAILY 04/20/23 04/20/23 History gram/dose oral powder (ClearLax) rosuvastatin 40 mg tablet 40 mg PO DAILY 04/20/23 04/20/23 History sennosides 8.6 mg tablet (Corrie-dario) 8.6 mg PO DAILY 04/20/23 04/20/23 History sucralfate 1 gram tablet 1 g PO .AC and HS 04/20/23 04/20/23 History terazosin 10 mg capsule 10 mg PO DAILY 04/20/23 04/20/23 History triamcinolone acetonide 0.1 % 1 applic topical DAILY 04/20/23 04/20/23 History topical cream venlafaxine 150 mg 150 mg PO DAILY 04/20/23 04/20/23 History capsule,extended release 24 hr Allergies Allergy/AdvReac Type Severity Reaction Status Date / Time acetaminophen [From Percocet] Allergy Intermediate Verified 04/20/23 17:51 morphine Allergy Intermediate Verified 04/20/23 17:49 oxycodone [From Percocet] Allergy Intermediate Verified 04/20/23 17:51 prochlorperazine Allergy Intermediate Verified 04/20/23 17:51 [From Compazine] Exam Constitutional Vital Signs - 24 hr 04/21/23 16:00 04/21/23 18:00 04/21/23 19:25 Temperature 98.6 F Pulse Rate 59 L 61 Pulse Rate [Monitor] 62 Respiratory Rate 18 18 Blood Pressure [Left Arm] Blood Pressure [Right Arm] 130/53 H Pulse Oximetry 98 Oxygen Delivery Method Nasal Cannula Oxygen Delivery Flow Rate 3 04/21/23 20:00 04/21/23 20:41 04/21/23 21:13 Temperature 98.2 F Pulse Rate 61 Pulse Rate [Monitor] Respiratory Rate 18 Blood Pressure [Left Arm] Blood Pressure [Right Arm] Pulse Oximetry 98 Oxygen Delivery Method Nasal Cannula Nasal Cannula Oxygen Delivery Flow Rate 2 04/21/23 22:00 04/22/23 00:00 04/22/23 02:00 Temperature Pulse Rate 57 L 56 L 58 L Pulse Rate [Monitor] Respiratory Rate Blood Pressure [Left Arm] Blood Pressure [Right Arm] Pulse Oximetry Oxygen Delivery Method Oxygen Delivery Flow Rate 04/22/23 04:00 04/22/23 04:17 04/22/23 05:01 Temperature 98.5 F Pulse Rate 55 L Pulse Rate [Monitor] Respiratory Rate Blood Pressure [Left Arm] Blood Pressure [Right Arm] 159/84 H Pulse Oximetry 95 95 Oxygen Delivery Method Nasal Cannula Oxygen Delivery Flow Rate 1.5 04/22/23 06:00 04/22/23 07:59 04/22/23 09:55 Temperature Pulse Rate 55 L 58 L 61 Pulse Rate [Monitor] Respiratory Rate Blood Pressure [Left Arm] Blood Pressure [Right Arm] Pulse Oximetry Oxygen Delivery Method Oxygen Delivery Flow Rate 04/22/23 11:17 04/22/23 11:52 04/22/23 13:50 Temperature 97.4 F L Pulse Rate 58 L 60 Pulse Rate [Monitor] Respiratory Rate 20 Blood Pressure [Left Arm] 188/74 H Blood Pressure [Right Arm] Pulse Oximetry 95 98 Oxygen Delivery Method Nasal Cannula Nasal Cannula Oxygen Delivery Flow Rate 2 1.5 04/22/23 13:50 04/22/23 15:49 Temperature Pulse Rate 59 L 63 Pulse Rate [Monitor] Respiratory Rate Blood Pressure [Left Arm] Blood Pressure [Right Arm] Pulse Oximetry Oxygen Delivery Method Oxygen Delivery Flow Rate Documenting provider has reviewed patient's vital signs: yes Common normals: no apparent distress General appearance: cooperative and comfortable Nutritional appearance: obese HENMT Common normals: normocephalic and head/scalp atraumatic Respiratory Common normals: normal respiratory effort and no use of accessory muscles Effort & inspection: able to speak in complete sentences Auscultation: rales and diminished lung sounds Cardio Common normals: regular rate, regular rhythm, S1 normal heart sound, S2 normal heart sound and no murmurs GI Common normals: soft to palpation and non-tender Inspection: other (Distended, umbilical hernia) Palpation: soft and tender (generalized tenderness) Extremity Common normals: normal to inspection and full ROM Neuro Common normals: oriented x3, moves all extremities, no focal motor deficits and no sensory deficits noted Psych Common normals: cooperative, denies homicidal ideation and denies suicidal ideation Attention/concentration: attention grossly intact Memory/cognition: memory grossly intact Other: intermittent confusion Results Labs Labs: Short CBC 04/22/23 Range/Units 04:50 WBC 12.6 H (4.0-11.0) 10^3/uL Hgb 6.9 L* (14.0-18.0) g/dL Hct 22.8 L* (42.0-54.0) % Plt Count 314 (150-450) 10^3/uL BMP 04/22/23 04:50 Sodium 138 Potassium 4.1 Chloride 103 Carbon Dioxide 30.6 BUN 23.0 H Creatinine 0.96 Glucose 103 Calcium 8.0 L Liver Function 04/22/23 Range/Units 04:50 Total Bilirubin 0.2 (0.2-1.0) mg/dL AST 36 (15-37) U/L ALT 26 (16-63) U/L Alkaline Phosphatase 52 (46-116) U/L Albumin 2.1 L (3.4-5.0) g/dL Assessment and Plan Assessment and Plan (1) Sepsis: Assessment and Plan: HR > 90, RR>20 with infection. Stable hemodynamics now. (2) Bilateral pneumonia: Assessment and Plan: B/l PNA, will treat as hospital acquired PNA due to recent hospital stay - 5 days at [facility] earlier this month. On IV vancomycin and zosyn Cultures negative so far Qualifiers: Pneumonia type: due to unspecified organism Lung location: lower lobe of lung Qualified Code(s): J18.9 - Pneumonia, unspecified organism (3) Acute respiratory failure with hypoxemia: Assessment and Plan: due to PNA. On 3-4 L O2 via NC. (4) Anemia: Assessment and Plan: Recent hospital admission for UGIB from bleeding gastric ulcer. Patient was taken off of Xarelto. Did not rquire blood tx at [facility] as Hb remained above transfusion threshold. Monitor closely. On PPI and carafate Qualifiers: Anemia type: iron deficiency Iron deficiency anemia type: chronic blood loss Qualified Code(s): D50.0 - Iron deficiency anemia secondary to blood loss (chronic) (5) Hypertension: Assessment and Plan: BP stable. C/w losartan. Monitor BP Qualifiers: Hypertension type: primary hypertension Qualified Code(s): I10 - Essential (primary) hypertension (6) High cholesterol: Assessment and Plan: C/w crestor (7) Gastric cancer: Assessment and Plan: Stage 4 gastric cancer. s/p chemotherapy and had just received one dose of Immunotherapy (nivolumab) Poor prognosis. Patient has poor insight into prognosis and does not realize how advanced his gastric cancer is Qualifiers: Malignant neoplasm of stomach location: body of stomach Qualified Code(s): C16.2 - Malignant neoplasm of body of stomach (8) Anxiety: Assessment and Plan: C/w effexor and lorazepam as needed (9) Cancer related pain: Assessment and Plan: Poorly controlled. On combination of fentanyl and dilaudid PO C/w same
--- NOTE | 2023-04-22 16:14 | P.IMPN_ITS ---
Progress Note: A&P Assessment and Plan (1) Sepsis: Assessment and Plan: Stable hemodynamics. C/w IV abx. Qualifiers: Sepsis type: sepsis due to unspecified organism Sepsis acute organ dysfunction status: with acute organ dysfunction Severe sepsis acute organ dysfunction type: acute respiratory failure (2) Bilateral pneumonia: Assessment and Plan: On IV vancomycin and zosyn. Being treated as hospital acquited PNA Qualifiers: Lung location: lower lobe of lung Pneumonia type: due to unspecified organism Qualified Code(s): J18.9 - Pneumonia, unspecified organism (3) Acute respiratory failure with hypoxemia: Assessment and Plan: on 2 L O2. no resp distress (4) Anemia: Assessment and Plan: Acute drop in Hb likely from UGIB. Started on IV protonix 40 q12. No overt GIB but recent hospital admission at [facility] for the same. Monitor H&H closely. Ordered one unit PRBC Hold off Surgical consult as recent GI w.u, requested records. Qualifiers: Anemia type: iron deficiency Iron deficiency anemia type: chronic blood loss Qualified Code(s): D50.0 - Iron deficiency anemia secondary to blood loss (chronic) (5) Hypertension: Assessment and Plan: Poorly controlled. added amlodipine Qualifiers: Hypertension type: primary hypertension Qualified Code(s): I10 - Essential (primary) hypertension (6) High cholesterol: Assessment and Plan: c/w statin (7) Gastric cancer: Assessment and Plan: Stage 4, suposed to be on immunotherapy. Poor prognosis. Poor insight. Qualifiers: Malignant neoplasm of stomach location: body of stomach Qualified Code(s): C16.2 - Malignant neoplasm of body of stomach (8) Anxiety: Assessment and Plan: Reasonably controlled. C/w effexor and Lorazepam (9) Cancer related pain: Assessment and Plan: Poorly controlled, acutely worsened earlier this morning. CT abd/pelvis ordered - no acute intraabdominal pathology but evidence of widespread metastasis with now possible pancreatic involvement. Will add lipase as this could possibly cause pancreatic inflammation and result in worsening pain Internal Medicine - PN: Subj Subjective Interval history: Seen and examined. Poorly controlled abdominal pain. Patient said it felt like something ripped apart inside. Hb below 7 this am on morning labs. Exam Constitutional Vital Signs - 24 hr 04/21/23 18:00 04/21/23 19:25 04/21/23 20:00 Temperature Pulse Rate 61 61 Pulse Rate [Monitor] 62 Respiratory Rate 18 Blood Pressure [Left Arm] Blood Pressure [Right Arm] Pulse Oximetry Oxygen Delivery Method Oxygen Delivery Flow Rate 04/21/23 20:41 04/21/23 21:13 04/21/23 22:00 Temperature 98.2 F Pulse Rate 57 L Pulse Rate [Monitor] Respiratory Rate 18 Blood Pressure [Left Arm] Blood Pressure [Right Arm] Pulse Oximetry 98 Oxygen Delivery Method Nasal Cannula Nasal Cannula Oxygen Delivery Flow Rate 2 04/22/23 00:00 04/22/23 02:00 04/22/23 04:00 Temperature Pulse Rate 56 L 58 L 55 L Pulse Rate [Monitor] Respiratory Rate Blood Pressure [Left Arm] Blood Pressure [Right Arm] Pulse Oximetry Oxygen Delivery Method Oxygen Delivery Flow Rate 04/22/23 04:17 04/22/23 05:01 04/22/23 06:00 Temperature 98.5 F Pulse Rate 55 L Pulse Rate [Monitor] Respiratory Rate Blood Pressure [Left Arm] Blood Pressure [Right Arm] 159/84 H Pulse Oximetry 95 95 Oxygen Delivery Method Nasal Cannula Oxygen Delivery Flow Rate 1.5 04/22/23 07:59 04/22/23 09:55 04/22/23 11:17 Temperature Pulse Rate 58 L 61 Pulse Rate [Monitor] Respiratory Rate Blood Pressure [Left Arm] Blood Pressure [Right Arm] Pulse Oximetry 95 Oxygen Delivery Method Nasal Cannula Oxygen Delivery Flow Rate 2 04/22/23 11:52 04/22/23 13:50 04/22/23 13:50 Temperature 97.4 F L Pulse Rate 58 L 60 59 L Pulse Rate [Monitor] Respiratory Rate 20 Blood Pressure [Left Arm] 188/74 H Blood Pressure [Right Arm] Pulse Oximetry 98 Oxygen Delivery Method Nasal Cannula Oxygen Delivery Flow Rate 1.5 04/22/23 15:49 Temperature Pulse Rate 63 Pulse Rate [Monitor] Respiratory Rate Blood Pressure [Left Arm] Blood Pressure [Right Arm] Pulse Oximetry Oxygen Delivery Method Oxygen Delivery Flow Rate Documenting provider has reviewed patient's vital signs: yes Common normals: no apparent distress General appearance: cooperative and comfortable Nutritional appearance: obese HENMT Common normals: normocephalic and head/scalp atraumatic Respiratory Common normals: normal respiratory effort and no use of accessory muscles Effort & inspection: able to speak in complete sentences Auscultation: rales and diminished lung sounds Cardio Common normals: regular rate, regular rhythm, S1 normal heart sound, S2 normal heart sound and no murmurs GI Common normals: soft to palpation and non-tender Inspection: other (Distended, umbilical hernia) Palpation: soft and tender (generalized tenderness) Extremity Common normals: normal to inspection and full ROM Neuro Common normals: oriented x3, moves all extremities, no focal motor deficits and no sensory deficits noted Psych Common normals: cooperative, denies homicidal ideation and denies suicidal ideation Attention/concentration: attention grossly intact Memory/cognition: memory grossly intact Other: intermittent confusion Internal Medicine - PN: Obj Da Labs Labs: Laboratory Results - last 24 hr 04/22/23 04/22/23 04:50 13:22 WBC 12.6 H RBC 2.58 L Hgb 6.9 L* Hct 22.8 L* MCV 88.4 MCH 26.7 MCHC 30.3 RDW 14.8 Plt Count 314 MPV 9.4 L Neut % (Auto) 92.6 H Lymph % (Auto) 2.4 L [place] % (Auto) 4.5 Eos % (Auto) 0.0 L Baso % (Auto) 0.1 L Neut # (Auto) 11.6 H Lymph # (Auto) 0.3 L [place] # (Auto) 0.6 Eos # (Auto) 0.0 Baso # (Auto) 0.0 Abs Immat Gran (auto) 0.05 H Imm/Tot Granulo (auto) 0.4 Sodium 138 Potassium 4.1 Chloride 103 Carbon Dioxide 30.6 Anion Gap 8.5 BUN 23.0 H Creatinine 0.96 Est GFR ( Amer) >60 Est GFR (Non-Af Amer) >60 BUN/Creatinine Ratio 24.0 Glucose 103 Calcium 8.0 L Total Bilirubin 0.2 AST 36 ALT 26 Alkaline Phosphatase 52 Total Protein 5.4 L Albumin 2.1 L Globulin 3.3 Albumin/Globulin Ratio 0.6 Blood Type O Positive Antibody Screen Negative Crossmatch See Detail
[2023-04-22] MEDS: AMLODIPINE BESYLATE 5 MG TABLET 10 MG PO (17:31)
[2023-04-22] MEDS: 0.9 % SODIUM CHLORIDE 1,000 ML 100 ML (17:32)
[2023-04-22] MEDS: HYDRALAZINE HCL 20 MG/ML VIAL 10 MG IVP (18:00)
[2023-04-22] MEDS: METOCLOPRAMIDE HCL 10 MG/2 ML VIAL IVP (19:31)
[2023-04-22 21:20] LABS: Basophils Percent Auto 0.1 % (0.2-2.0); Eosinophils Percent Auto 0.1 % (0.9-7.0); Hematocrit 27.2 % (42.0-54.0); Hemoglobin 8.7 g/dL (14.0-18.0); Immature Granulocytes Abs Auto 0.06 10^3/uL (0.00-0.03); Immature Granulocytes Pct Auto 0.4 % (0.0-0.5); Lymphocytes Absolute Auto 0.5 10^3/uL (1.2-3.8); Lymphocytes Percent Auto 3.5 % (20.5-60.0); Mean Corpuscular Hemoglobin 27.1 pg (25.9-34.0); Mean Corpuscular Volume 84.7 fL (80.0-94.0); Mean Platelet Volume 9.7 fL (9.5-13.5); Monocytes Absolute Auto 0.7 10^3/uL (0.3-0.8); Monocytes Percent Auto 5.5 % (1.7-12.0); Neutrophils Absolute Auto 12.1 10^3/uL (1.4-6.5); Neutrophils Percent Auto 90.4 % (43.0-75.0); Platelet Count 266 10^3/uL (150-450); Red Blood Count 3.21 10^6/uL (4.70-6.10); Red Cell Distribution Width 14.3 % (11.0-15.0); White Blood Count 13.4 10^3/uL (4.0-11.0)
[2023-04-22] MEDS: HEPARIN SODIUM (PORCINE) PF LOCK FLUSH 500 UNIT/5 ML SYRINGE IV (21:26)
[2023-04-22] MEDS: VENLAFAXINE HCL ER 150 MG CAPSULE PO (21:41)
[2023-04-23] VITALS (20 sets, daily range): BP systolic 141–171; BP diastolic 78–88; PULSE 60–89; RESP 18–20; TEMP 36.6–36.8; O2SAT 90–99
[2023-04-23] MEDS: PANTOPRAZOLE SODIUM 40 MG VIAL IV ×2 (00:21→11:59)
[2023-04-23] MEDS: ONDANSETRON PF 4 MG/2 ML VIAL IV (03:32)
[2023-04-23] MEDS: HYDROMORPHONE HCL 2 MG TABLET 4 MG PO ×3 (03:32→20:24)
[2023-04-23] MEDS: ONDANSETRON 4 MG RAPDIS TABLET 8 MG PO ×2 (05:01→21:12)
[2023-04-23] MEDS: PIPERACILLIN SODIUM/TAZOBACTAM 3.375 GM in 0.9 % SODIUM CHLORIDE 50 ML IV ×3 (05:02→22:44)
[2023-04-23 05:38] LABS: Basophils Percent Auto 0.1 % (0.2-2.0); Hematocrit 28.6 % (42.0-54.0); Hemoglobin 9.1 g/dL (14.0-18.0); Immature Granulocytes Abs Auto 0.09 10^3/uL (0.00-0.03); Immature Granulocytes Pct Auto 0.6 % (0.0-0.5); Lymphocytes Absolute Auto 0.3 10^3/uL (1.2-3.8); Lymphocytes Percent Auto 2.3 % (20.5-60.0); Mean Corpuscular HGB Conc 31.8 g/dL (29.9-35.2); Mean Corpuscular Hemoglobin 27.1 pg (25.9-34.0); Mean Corpuscular Volume 85.1 fL (80.0-94.0); Mean Platelet Volume 9.4 fL (9.5-13.5); Monocytes Absolute Auto 0.8 10^3/uL (0.3-0.8); Monocytes Percent Auto 5.5 % (1.7-12.0); Neutrophils Absolute Auto 12.8 10^3/uL (1.4-6.5); Neutrophils Percent Auto 91.5 % (43.0-75.0); Platelet Count 338 10^3/uL (150-450); Red Blood Count 3.36 10^6/uL (4.70-6.10); Red Cell Distribution Width 14.1 % (11.0-15.0); White Blood Count 13.9 10^3/uL (4.0-11.0)
[2023-04-23 06:06] LABS: Alanine Aminotransferase 30 U/L (16-63); Albumin Globulin Ratio 0.6; Albumin Level 2.3 g/dL (3.4-5.0); Alkaline Phosphatase 66 U/L (46-116); Anion Gap 9.3; Aspartate Amino Transferase 39 U/L (15-37); BUN Creatinine Ratio 18.2; Bilirubin Total 0.4 mg/dL (0.2-1.0); Calcium 8.2 mg/dL (8.5-10.1); Carbon Dioxide 29.5 mmol/L (21.0-32.0); Chloride 101 mmol/L (98-107); Estimated GFR (African America >60 (>=60); Estimated GFR (Non-African Ame >60 (>=60); Globulin 3.6 g/dL; Glucose 94 mg/dL (74-106); Potassium 3.8 mmol/L (3.5-5.1); Sodium 136 mmol/L (136-145); Total Protein 5.9 g/dL (6.4-8.2)
[2023-04-23 09:37] LABS: Vancomycin Trough 3.8 ug/mL (5.0-20.0)
[2023-04-23] MEDS: 0.9 % SODIUM CHLORIDE 250 ML 25 ML IV (09:40)
[2023-04-23] MEDS: 0.9 % SODIUM CHLORIDE 10 ML SYRINGE - SALINE FLUSH IV ×2 (09:43→20:22)
[2023-04-23] MEDS: HYDROCORTISONE 20 MG TABLET 40 MG PO ×2 (09:43→20:21)
[2023-04-23] MEDS: LOSARTAN POTASSIUM 50 MG TABLET 100 MG PO (09:43)
[2023-04-23] MEDS: POLYETHYLENE GLYCOL 3350 17 GM POWDER PACKET PO (09:44)
[2023-04-23] MEDS: TRIAMCINOLONE ACETONIDE 0.1% CREAM 15 GM TUBE 1 APPLIC TOPICAL (09:44)
[2023-04-23] MEDS: SENNOSIDES 8.6 MG TABLET PO (09:44)
[2023-04-23] MEDS: NON-FORMULARY 1 EACH (Rosuvastatin 40 mg tablet) 40 EACH PO (09:44)
[2023-04-23] MEDS: VANCOMYCIN HCL 1,750 MG in 0.9 % SODIUM CHLORIDE 500 ML 250 MG IV (10:14)
--- NOTE | 2023-04-23 10:51 | PT.DAILY ---
Physical Therapy Daily Note PT Daily Note/Assess Start: 04/22/23 13:10 Freq: Status: Active Protocol: Document 04/23/23 09:55 SHELL (Rec: 04/23/23 10:51 SHELL [id number]) Physical Therapy Daily Note/Assessment Time In/Time Out Time In 09:55 Time Out 10:10 Pain In Pain N/A Pain Out Pain Level 5 Subjective Subjective Supine upon arrival. More alert today. Able to hold conversation. Agrees to PT. Therapeutic Exercise Time Therapeutic Exercise Minutes (minutes) 5 Therapeutic Exercise Units 0 Therapeutic Exercise Treatment Therapeutic Exercise Treatment Seated AP, LAQ, marches and add squeezes 10x ea while sitting in BS chair to improve strength and mobility. Therapeutic Activity Time Therapeutic Activity Minutes (minutes) 5 Therapeutic Activity Units 1 Therapeutic Activity Treatment Bed Mobility Ability Moderate Assist Chair Transfer Ability Minimum Assist Therapeutic Activity Comments Pt performs supine>sit with Mod A to advance upper body to sitting EOB. Able to maintain static seated balance without support. Pt sit>stand to RW El and amb CGA+2 with RW 6' to BS chair. Remains in BS chair under nursing care. Total Physical Therapy Time Total Therapy Minutes 10 Total Physical Therapy Units 1 Summary Daily Note Summary Improved cooperation today. 5/ 10 stomach pain after activity .
[2023-04-23] MEDS: METOCLOPRAMIDE HCL 10 MG/2 ML VIAL IVP (11:59)
[2023-04-23] MEDS: HYDRALAZINE HCL 20 MG/ML VIAL 10 MG IVP (11:59)
[2023-04-23] MEDS: SUCRALFATE 1 GM TABLET PO ×3 (12:05→21:12)
--- NOTE | 2023-04-23 14:17 | PM.PN ---
Progress Note: Subjective Subjective Interval history: Patient feels better this am. Given blood overnight and hgb improved. SOB improved and not having as hard of a time catching breath. Continues to have abdominal pain and nausea. Decreased appetite and not hungry. Continues to have fatigue. Wants to discuss options with hospice. No chest pain or palpitations. Afebrile. Exam Constitutional Vital Signs - 24 hr 04/22/23 15:49 04/22/23 17:25 04/22/23 17:50 Temperature 97.5 F L 97.6 F Pulse Rate 63 60 64 Pulse Rate [Monitor] Respiratory Rate 20 22 Blood Pressure 190/78 H 196/85 H Blood Pressure [Left Arm] Pulse Oximetry Oxygen Delivery Method Oxygen Delivery Flow Rate 04/22/23 17:54 04/22/23 18:50 04/22/23 19:53 Temperature 97.0 F L Pulse Rate 63 64 62 Pulse Rate [Monitor] Respiratory Rate 18 Blood Pressure 177/78 H Blood Pressure [Left Arm] Pulse Oximetry Oxygen Delivery Method Oxygen Delivery Flow Rate 04/22/23 19:50 04/22/23 20:22 04/22/23 21:14 Temperature 97.2 F L 97.7 F Pulse Rate 67 66 Pulse Rate [Monitor] 62 Respiratory Rate 20 20 20 Blood Pressure 151/78 H 187/72 H Blood Pressure [Left Arm] Pulse Oximetry 94 L Oxygen Delivery Method Nasal Cannula Nasal Cannula Oxygen Delivery Flow Rate 1.5 1.5 04/22/23 20:50 04/22/23 21:48 04/23/23 00:06 Temperature Pulse Rate 64 67 Pulse Rate [Monitor] Respiratory Rate Blood Pressure Blood Pressure [Left Arm] Pulse Oximetry 97 Oxygen Delivery Method Nasal Cannula Oxygen Delivery Flow Rate 1 04/23/23 01:57 04/23/23 03:58 04/23/23 04:58 Temperature Pulse Rate 63 63 Pulse Rate [Monitor] Respiratory Rate Blood Pressure Blood Pressure [Left Arm] Pulse Oximetry 95 Oxygen Delivery Method Nasal Cannula Oxygen Delivery Flow Rate 04/23/23 06:20 04/23/23 07:53 04/23/23 09:46 Temperature 98.1 F Pulse Rate 68 64 72 Pulse Rate [Monitor] Respiratory Rate 18 Blood Pressure Blood Pressure [Left Arm] 150/88 H Pulse Oximetry 90 L Oxygen Delivery Method Nasal Cannula Oxygen Delivery Flow Rate 04/23/23 11:51 04/23/23 11:55 04/23/23 11:30 Temperature 98 F Pulse Rate 66 60 Pulse Rate [Monitor] Respiratory Rate 20 Blood Pressure Blood Pressure [Left Arm] 171/81 H Pulse Oximetry 97 99 Oxygen Delivery Method Nasal Cannula Nasal Cannula Oxygen Delivery Flow Rate 1 1.5 04/23/23 14:07 Temperature Pulse Rate 67 Pulse Rate [Monitor] Respiratory Rate Blood Pressure Blood Pressure [Left Arm] Pulse Oximetry Oxygen Delivery Method Oxygen Delivery Flow Rate Documenting provider has reviewed patient's vital signs: yes Common normals: no apparent distress, oriented x3 and alert HENMT Common normals: normocephalic Eye Common normals: PERRL and EOMs intact bilaterally Respiratory Common normals: clear to auscultation bilaterally Cardio Common normals: regular rate, regular rhythm, no gallops, no murmurs and no rub GI Auscultation: normoactive bowel sounds Palpation: tender (Diffuse TTP without rebound or guarding); no guarding Extremity General: no edema Progress Note: Objective Labs Labs: Short CBC 04/22/23 04/23/23 Range/Units 21:10 04:50 WBC 13.4 H 13.9 H (4.0-11.0) 10^3/uL Hgb 8.7 L 9.1 L (14.0-18.0) g/dL Hct 27.2 L 28.6 L (42.0-54.0) % Plt Count 266 338 (150-450) 10^3/uL BMP 04/23/23 04:50 Sodium 136 Potassium 3.8 Chloride 101 Carbon Dioxide 29.5 BUN 16.0 Creatinine 0.88 Glucose 94 Calcium 8.2 L Liver Function 04/23/23 Range/Units 04:50 Total Bilirubin 0.4 (0.2-1.0) mg/dL AST 39 H (15-37) U/L ALT 30 (16-63) U/L Alkaline Phosphatase 66 (46-116) U/L Albumin 2.3 L (3.4-5.0) g/dL Progress Note: A&P Assessment and Plan (1) Sepsis: Qualifiers: Sepsis type: sepsis due to unspecified organism Sepsis acute organ dysfunction status: with acute organ dysfunction Severe sepsis acute organ dysfunction type: acute respiratory failure (2) Bilateral pneumonia: Qualifiers: Lung location: lower lobe of lung Pneumonia type: due to unspecified organism Qualified Code(s): J18.9 - Pneumonia, unspecified organism (3) Acute respiratory failure with hypoxemia: (4) Anemia: Qualifiers: Anemia type: iron deficiency Iron deficiency anemia type: chronic blood loss Qualified Code(s): D50.0 - Iron deficiency anemia secondary to blood loss (chronic) (5) Hypertension: Qualifiers: Hypertension type: primary hypertension Qualified Code(s): I10 - Essential (primary) hypertension (6) High cholesterol: (7) Gastric cancer: Qualifiers: Malignant neoplasm of stomach location: body of stomach Qualified Code(s): C16.2 - Malignant neoplasm of body of stomach (8) Anxiety: (9) Cancer related pain: Plan 1. Pneumonia 2. Sepsis 3. Acute hypoxic respiratory failure 4. Iron def anemia due to blood loss 5. Stage IV gastric carcinoma 6. HTN 7. Pain due to cancer Patient improved this am and continue antibiotics. Wean O2 as tolerated. Monitor labs. Patient will meet with hospice later today.
[2023-04-23] MEDS: AMLODIPINE BESYLATE 5 MG TABLET 10 MG PO (16:06)
[2023-04-23] MEDS: LORAZEPAM 0.5 MG TABLET PO (16:06)
[2023-04-23] MEDS: MAALOX (MAG HYDROX/ALUMINUM HYD/SIMETH) 30 ML ORAL.SUSP 5 ML PO (20:20)
[2023-04-23] MEDS: TERAZOSIN HCL 5 MG CAPSULE 10 MG PO (20:24)
[2023-04-23] MEDS: VENLAFAXINE HCL ER 150 MG CAPSULE PO (21:14)
[2023-04-23] MEDS: VANCOMYCIN HCL 1,500 MG in 0.9 % SODIUM CHLORIDE 500 ML 250 MG IV (21:14)
--- NOTE | 2023-04-23 21:45 | PC.NURSE ---
16 Fr morales catheter inserted per policy. Pt. verbalized understanding for morales. Patient tolerated well. Immediate return of clear yellow urine noted. Balloon inflated with 10ml of sterile fluid. Amina care provided. Cath secure applied.
[2023-04-24] VITALS (9 sets, daily range): BP systolic 150; BP diastolic 70; PULSE 72–83; RESP 18; TEMP 36.4; O2SAT 91–93
[2023-04-24] MEDS: PANTOPRAZOLE SODIUM 40 MG VIAL IV ×2 (01:23→12:18)
--- NOTE | 2023-04-24 05:03 | PC.NURSE ---
very large, soft, black stool
[2023-04-24] MEDS: PIPERACILLIN SODIUM/TAZOBACTAM 3.375 GM in 0.9 % SODIUM CHLORIDE 50 ML IV ×2 (05:23→13:41)
[2023-04-24] MEDS: LORAZEPAM 0.5 MG TABLET PO ×2 (05:23→12:18)
[2023-04-24] MEDS: ONDANSETRON 4 MG RAPDIS TABLET 8 MG PO (05:23)
[2023-04-24] MEDS: HYDROMORPHONE HCL 2 MG TABLET 4 MG PO ×3 (05:24→13:51)
[2023-04-24 05:31] LABS: Basophils Percent Auto 0.1 % (0.2-2.0); Hematocrit 27.9 % (42.0-54.0); Hemoglobin 8.7 g/dL (14.0-18.0); Immature Granulocytes Abs Auto 0.05 10^3/uL (0.00-0.03); Immature Granulocytes Pct Auto 0.6 % (0.0-0.5); Lymphocytes Absolute Auto 0.3 10^3/uL (1.2-3.8); Lymphocytes Percent Auto 2.9 % (20.5-60.0); Mean Corpuscular HGB Conc 31.2 g/dL (29.9-35.2); Mean Corpuscular Volume 86.6 fL (80.0-94.0); Mean Platelet Volume 9.5 fL (9.5-13.5); Monocytes Absolute Auto 0.6 10^3/uL (0.3-0.8); Monocytes Percent Auto 6.4 % (1.7-12.0); Platelet Count 313 10^3/uL (150-450); Red Blood Count 3.22 10^6/uL (4.70-6.10); Red Cell Distribution Width 14.3 % (11.0-15.0); White Blood Count 8.9 10^3/uL (4.0-11.0)
[2023-04-24 06:08] LABS: Alanine Aminotransferase 26 U/L (16-63); Albumin Globulin Ratio 0.6; Albumin Level 2.2 g/dL (3.4-5.0); Alkaline Phosphatase 64 U/L (46-116); Anion Gap 10.9; Aspartate Amino Transferase 31 U/L (15-37); BUN Creatinine Ratio 20.5; Bilirubin Total 0.4 mg/dL (0.2-1.0); Calcium 8.2 mg/dL (8.5-10.1); Carbon Dioxide 30.8 mmol/L (21.0-32.0); Chloride 99 mmol/L (98-107); Estimated GFR (African America >60 (>=60); Estimated GFR (Non-African Ame >60 (>=60); Globulin 3.5 g/dL; Glucose 103 mg/dL (74-106); Potassium 3.7 mmol/L (3.5-5.1); Sodium 137 mmol/L (136-145); Total Protein 5.7 g/dL (6.4-8.2)
[2023-04-24] MEDS: METOCLOPRAMIDE HCL 10 MG/2 ML VIAL IVP (07:50)
[2023-04-24] MEDS: SUCRALFATE 1 GM TABLET PO ×2 (07:50→12:18)
[2023-04-24] MEDS: SENNOSIDES 8.6 MG TABLET PO (09:41)
[2023-04-24] MEDS: LOSARTAN POTASSIUM 50 MG TABLET 100 MG PO (09:41)
[2023-04-24] MEDS: HYDROCORTISONE 20 MG TABLET 40 MG PO (09:41)
[2023-04-24] MEDS: 0.9 % SODIUM CHLORIDE 10 ML SYRINGE - SALINE FLUSH IV (09:46)
[2023-04-24] MEDS: NON-FORMULARY 1 EACH (Rosuvastatin 40 mg tablet) 40 EACH PO (09:48)
[2023-04-24] MEDS: VANCOMYCIN HCL 1,500 MG in 0.9 % SODIUM CHLORIDE 500 ML 250 MG IV (09:59)
[2023-04-24] MEDS: ONDANSETRON PF 4 MG/2 ML VIAL IV (13:42)
--- NOTE | 2023-04-24 15:01 | PM.DS1 ---
DS: Providers Provider Date of admission: 04/20/23 20:30 Primary care physician: Marcela Phan MD Consults: 04/20/23 Consult to Safety Deposit Clerk Routine Reason for consult:: long term 04/20/23 23:24 Consult to Dietitian Routine Reason For Exam: Consult to Pharmacy Routine Consulting Provider: Jonathan Cottrell V 04/21/23 11:46 Occupational Therapy Eval and Treat Routine Physical Therapy Eval and Treat Routine DS: Diagnosis Discharge Diagnosis (1) Sepsis: Qualifiers: Sepsis type: sepsis due to unspecified organism Sepsis acute organ dysfunction status: with acute organ dysfunction Severe sepsis acute organ dysfunction type: acute respiratory failure (2) Bilateral pneumonia: Qualifiers: Lung location: lower lobe of lung Pneumonia type: due to unspecified organism Qualified Code(s): J18.9 - Pneumonia, unspecified organism (3) Acute respiratory failure with hypoxemia: (4) Anemia: Qualifiers: Anemia type: iron deficiency Iron deficiency anemia type: chronic blood loss Qualified Code(s): D50.0 - Iron deficiency anemia secondary to blood loss (chronic) (5) Hypertension: Qualifiers: Hypertension type: primary hypertension Qualified Code(s): I10 - Essential (primary) hypertension (6) High cholesterol: (7) Gastric cancer: Qualifiers: Malignant neoplasm of stomach location: body of stomach Qualified Code(s): C16.2 - Malignant neoplasm of body of stomach (8) Anxiety: (9) Cancer related pain: Plan Primary diagnosis: Pneumonia Secondary diagnosis: 1. Sepsis 2. Acute hypoxic respiratory failure 3. Iron def anemia due to blood loss 4. Stage IV gastric cancer 5. HTN 6. Pain due to cancer DS: Summary Hospital Course Hospital Course: Reason for admission: See ER note and H&P for details. 72 y/o male with a history of stage IV gastric cancer to ER with SOB. Admitted at [facility] 04/14-04/18 with GI bleed and stopped Xarelto. Developed worsening abdominal pain. Increased SOB and weakness. Very difficult to ambulate and fatigued. To ER and hgb stable at 8.3. SpO2 83% on room air and CT without PE but showed pneumonia. Admitted for treatment. Hospital course: Worsening SpO2 and placed on BiPAP. Given 1 unit PRBC. Started vancomycin and zosyn for pneumonia. Discussed CT with patient and appears to have increased mets in abdomen. Patient interested in hospice. Hgb stable. Continued to have fatigue and SOB. Met with hospice and accepted for inpatient hospice. Patient agreeable to hospice and transferred in stable condition. Time Spent with Patient Time attestation: Total time spent providing and/or coordinating discharge services: Exam Constitutional Vital Signs - 24 hr 04/23/23 15:54 04/23/23 17:37 04/23/23 19:46 Temperature Pulse Rate 67 65 Respiratory Rate 20 Blood Pressure [Left Arm] Blood Pressure [Right Arm] Pulse Oximetry Oxygen Delivery Method Oxygen Delivery Flow Rate 04/23/23 20:00 04/23/23 20:41 04/23/23 21:16 Temperature 98.3 F Pulse Rate 70 83 Respiratory Rate 18 Blood Pressure [Left Arm] Blood Pressure [Right Arm] 160/78 H Pulse Oximetry 96 92 L Oxygen Delivery Method Nasal Cannula Nasal Cannula Oxygen Delivery Flow Rate 1 04/23/23 22:00 04/23/23 23:46 04/24/23 01:50 Temperature Pulse Rate 89 81 77 Respiratory Rate Blood Pressure [Left Arm] Blood Pressure [Right Arm] Pulse Oximetry Oxygen Delivery Method Oxygen Delivery Flow Rate 04/24/23 03:54 04/24/23 05:07 04/24/23 05:32 Temperature 97.6 F Pulse Rate 75 83 Respiratory Rate 18 Blood Pressure [Left Arm] 150/70 H Blood Pressure [Right Arm] Pulse Oximetry 93 L 91 L Oxygen Delivery Method Nasal Cannula Nasal Cannula Oxygen Delivery Flow Rate 1 1 04/24/23 05:45 04/24/23 07:57 04/24/23 09:57 Temperature Pulse Rate 74 74 73 Respiratory Rate Blood Pressure [Left Arm] Blood Pressure [Right Arm] Pulse Oximetry Oxygen Delivery Method Oxygen Delivery Flow Rate 04/24/23 12:00 04/24/23 12:19 04/24/23 13:53 Temperature Pulse Rate 72 77 Respiratory Rate Blood Pressure [Left Arm] Blood Pressure [Right Arm] Pulse Oximetry Oxygen Delivery Method Nasal Cannula Oxygen Delivery Flow Rate 1 Documenting provider has reviewed patient's vital signs: yes Common normals: no apparent distress, oriented x3 and alert HENMT Common normals: normocephalic Eye Common normals: PERRL and EOMs intact bilaterally Respiratory Common normals: normal respiratory effort Cardio Common normals: regular rate, regular rhythm, no gallops, no murmurs and no rub GI Inspection: abdominal distension Palpation: tender (Diffuse TTP) Extremity General: no edema DS: Data Data Completed and Pending Labs on day of discharge: Labs from last 24 hours 04/24/23 03:44 WBC 8.9 RBC 3.22 L Hgb 8.7 L Hct 27.9 L MCV 86.6 MCH 27.0 MCHC 31.2 RDW 14.3 Plt Count 313 MPV 9.5 Neut % (Auto) 90.0 H Lymph % (Auto) 2.9 L [place] % (Auto) 6.4 Eos % (Auto) 0.0 L Baso % (Auto) 0.1 L Neut # (Auto) 8.0 H Lymph # (Auto) 0.3 L [place] # (Auto) 0.6 Eos # (Auto) 0.0 Baso # (Auto) 0.0 Abs Immat Gran (auto) 0.05 H Imm/Tot Granulo (auto) 0.6 H Sodium 137 Potassium 3.7 Chloride 99 Carbon Dioxide 30.8 Anion Gap 10.9 BUN 17.0 Creatinine 0.83 Est GFR ( Amer) >60 Est GFR (Non-Af Amer) >60 BUN/Creatinine Ratio 20.5 Glucose 103 Calcium 8.2 L Total Bilirubin 0.4 AST 31 ALT 26 Alkaline Phosphatase 64 Total Protein 5.7 L Albumin 2.2 L Globulin 3.5 Albumin/Globulin Ratio 0.6 Preliminary micro results at discharge 04/20/23 18:07 Blood Culture Result 1 - Preliminary Blood NO GROWTH AT 36-48 HOURS. FINAL TO FOLLOW. 04/20/23 17:50 Blood Culture Result 1 - Preliminary Blood NO GROWTH AT 36-48 HOURS. FINAL TO FOLLOW. Discharge Plan Discharge Disposition: Hospice - Medical Facility Condition: Fair Discharge Medications: New Piperacillin Sodium/Tazobactam [Zosyn 3.375 gm Vl] 3.375 GM 0.9 % Sodium Chloride [Sodium Chloride 0.9% 50 ml] 50 ML 12.5 mls/hr IV Q8H Ordered By: Theodore Last MD Last Taken: 04/24/23 13:41 50 mls/hr Continued alum-mag hydroxide-simeth [Antacid] 200-200-20 mg/5 mL suspension 5 ml PO Q3H PRN (Reason: indigestion) polyethylene glycol 3350 [ClearLax] 17 gram/dose powder 17 g PO DAILY diphenhydramine HCl [Allergy (diphenhydramine)] 12.5 mg/5 mL liquid 12.5 mg PO Q8H PRN (Reason: allergy symptoms) fluocinonide 0.05 % cream 1 applic topical DAILY hydrocortisone [Anusol-HC] 2.5 % cream with perineal applicator 1 applic GA DAILY PRN (Reason: itching) hydromorphone 2 mg tablet 4 mg PO Q4H PRN (Reason: pain) ketoconazole 2 % shampoo 1 applic TOPICAL .THREE TIMES WEEKLY Rx Instructions: WASH SCALP 3 TIMES WEEKLY - LEAVE ON FOR 5 MINUTES THEN RINSE lorazepam 0.5 mg tablet 0.5 mg PO TID PRN (Reason: anxiety) losartan 100 mg tablet 100 mg PO DAILY naloxone 4 mg/actuation spray,non-aerosol 4 mg INTRANASAL DAILY PRN (Reason: opioid overdose) omeprazole 20 mg capsule,delayed release(DR/EC) 20 mg PO DAILY ondansetron 4 mg tablet,disintegrating 8 mg PO Q8H sennosides [Corrie-dario] 8.6 mg tablet 8.6 mg PO DAILY sucralfate 1 gram tablet 1 g PO .AC and HS terazosin 10 mg capsule 10 mg PO DAILY hydrocortisone 10 mg tablet 40 mg PO BID venlafaxine 150 mg capsule,extended release 24hr 150 mg PO DAILY triamcinolone acetonide 0.1 % cream 1 applic TOPICAL DAILY fluocinonide 0.05 % solution 1 applic TOPICAL BID PRN (Reason: itching) Rx Instructions: APPLY SPARINGLY TO THE AFFECTED AREAS OF SCALP TWICE A DAILY NEEDED FOR UP TO 5 DAYS PER WEEK rosuvastatin 40 mg tablet 40 mg PO DAILY fentanyl 25 mcg/hr patch 72 hour 1 patch transdermal Q72H Rx Instructions: Placed on patients stomach Activity: increase activity as tolerated and resume usual activities as tolerated Diet: advance to your usual diet Chemical Librarian/Glove Cleaner Instructions: Discharge with [facility], phone number is [phone] Forms: Portal Instructions Discharge Date/Time: 04/24/23 14:16
== END 2023-04-24 14:16 | disposition hospice, inpatient (51) | DRG 871 ==
LOC: ER 20:53 → ICU 21:07 → MS 04-21 18:27
PROVIDERS: Internal Medicine; Physician Assistant; Admitting Provider Family Medicine; Emergency Provider Emergency Medicine; PCP Family Medicine; Visit Provider Internal Medicine
DX: A41.9 Sepsis, unspecified organism (principal); J18.9 Pneumonia, unspecified organism; J96.01 Acute respiratory failure with hypoxia; C16.2 Malignant neoplasm of body of stomach; R65.20 Severe sepsis without septic shock; K25.9 Gastric ulcer, unspecified as acute or chronic, without hemorrhage or perforation; I10 Essential (primary) hypertension; E78.00 Pure hypercholesterolemia, unspecified; F41.9 Anxiety disorder, unspecified; D50.0 Iron deficiency anemia secondary to blood loss (chronic); G89.3 Neoplasm related pain (acute) (chronic); Z79.891 Long term (current) use of opiate analgesic; Z79.899 Other long term (current) drug therapy; Z88.8 Allergy status to other drugs, medicaments and biological substances; Z20.822 Contact with and (suspected) exposure to COVID-19; Y95 Nosocomial condition
CPT/HCPCS: 36415; 36430; 36591; 71275; 74177; 80048; 80053; 80202; 83880; 84484; 85007; 85025; 85610; 85730; 86850; 86900; 86901; 87040; 87635; 87811; 93005; 94660; 94761; 96365; 96366; 96368; 96375; 96376; 97161; 97165; 97530; 99285; J1170; J3370; P9016; Q3014; Q9966; Q9967